=== PATIENT | female | born 1970 | race African-American/Black ===

== ENCOUNTER 2021-08-07 07:29 | Day surgery (SDC) | payer BC ==
[2021-08-02 13:39] VITALS: BMI 35.3
[2021-08-07] MEDS ORDERED: LIDOCAINE HCL/PF 2% SDV 5ML VIAL ONE (07:57)
[2021-08-07] MEDS ORDERED: PROPOFOL 20 ML ONE ×4 (07:58)
[2021-08-07 09:14] VITALS: TEMP 98.2
[2021-08-07 09:30] VITALS: BP 125/75; PULSE 81
== END 2021-08-07 09:31 | disposition home or self-care (01) ==
LOC: FASU-ENDO 07:29
PROVIDERS: ATTEND Internal Medicine Gastroenterology
PROC: 0DJD8ZZ Inspection of Lower Intestinal Tract, Via Natural or Artificial Opening Endoscopic (ICD-10-PCS; principal; 2021-08-07 08:49)
DX: Z12.11 Encounter for screening for malignant neoplasm of colon (principal)
CPT/HCPCS: 84703